=== PATIENT | female | born 1955 | race Caucasian/White ===

== ENCOUNTER 2023-05-19 05:58 | Inpatient (IN) | payer MEDICARE, OTHER ==
[~2023-05-19] VITALS: Ht 152.4 cm; Wt 68.0 kg
[2023-05-19 06:52] VITALS: BP 120/60; TEMP 97.7; O2SAT 98
[2023-05-19] MEDS ORDERED: FENTANYL PF 250MCG/5ML AMPUL ONE (07:24)
[2023-05-19] MEDS ORDERED: ROCURONIUM BROMIDE 50 MG/5 ML ONE ×2 (07:25→07:26)
[2023-05-19] MEDS ORDERED: ANESTHESIA TRAY IN PYXIS 1 EA TRAY MC ONE (07:26)
[2023-05-19] MEDS ORDERED: LIDOCAINE 2%-EPI 1:100,000 30 ML VIAL ONE (07:27)
[2023-05-19] MEDS ORDERED: VANCOMYCIN 1 GM VIAL ONE (07:27)
[2023-05-19] MEDS ORDERED: SEVOFLURANE 250 ML BOTTLE IH ONE (07:44)
[2023-05-19] MEDS ORDERED: OMEP40CA21 PO (08:04)
[2023-05-19] MEDS ORDERED: CLON0.5T4 PO (08:04)
[2023-05-19] MEDS ORDERED: PROP20TA7 PO (08:04)
[2023-05-19] MEDS ORDERED: ALEN70TA3 PO (08:04)
[2023-05-19] MEDS ORDERED: HYDROMORPHONE 1 MG/1 ML DISP.SYRIN IV PRN (10:00)
[2023-05-19] MEDS ORDERED: IV NS 0.9% 1,000 ML IV PRN (10:00)
[2023-05-19] MEDS ORDERED: ONDANSETRON HCL/PF 4 MG/2 ML VIAL IV PRN (10:00)
[2023-05-19] MEDS ORDERED: ACETAMINOPHEN 325 MG TABLET PO PRN (10:00)
[2023-05-19 10:10] VITALS: BP 126/63; TEMP 97.5; O2SAT 99
[2023-05-19 12:00] VITALS: BP 118/54; TEMP 97.8; O2SAT 97
[2023-05-19 15:51] VITALS: BP 108/60; TEMP 98.2; O2SAT 97
[2023-05-19 20:00] VITALS: BP 106/55; TEMP 98.4; O2SAT 96
[2023-05-19] MEDS: VANCOMYCIN 1 GM in IV D5W 250ml IV SCH (20:29)
[2023-05-19] MEDS ORDERED: clonazePAM 0.5 MG TABLET PO SCH (22:00)
[2023-05-20] MEDS ORDERED: FAMOTIDINE (20 MG) 20 MG TABLET PO ONE (04:00)
[2023-05-20] MEDS ORDERED: PANTOPRAZOLE 40 MG TABLET.DR PO SCH (07:30)
[2023-05-20 08:00] VITALS: BP 137/56; TEMP 98.2; O2SAT 96
[2023-05-20] MEDS: VANCOMYCIN 1 GM in IV D5W 250ml IV SCH (08:17)
[2023-05-20 08:47] VITALS: BP 137/56
[2023-05-20] MEDS ORDERED: PROPRANOLOL HCL 10 MG TABLET PO SCH (09:00)
[2023-05-25] MEDS ORDERED: ALENDRONATE 70 MG TABLET PO SCH (09:00)
== END 2023-05-20 14:00 | disposition home or self-care (01) | DRG 141 ==
LOC: DS 05:58 → MED 05:59
PROVIDERS: ADMIT Internal Medicine; ATTEND Internal Medicine
PROC: 0NSR04Z Reposition Maxilla with Internal Fixation Device, Open Approach (ICD-10-PCS; principal; 2023-05-19)
PROC: 0NUR07Z Supplement Maxilla with Autologous Tissue Substitute, Open Approach (ICD-10-PCS; 2023-05-19)
PROC: 09UQ07Z Supplement Right Maxillary Sinus with Autologous Tissue Substitute, Open Approach (ICD-10-PCS; 2023-05-19)
PROC: 0NBV0ZX Excision of Left Mandible, Open Approach, Diagnostic (ICD-10-PCS; 2023-05-19)
PROC: 0NBR0ZX Excision of Maxilla, Open Approach, Diagnostic (ICD-10-PCS; 2023-05-19)
PROC: 0NHV04Z Insertion of Internal Fixation Device into Left Mandible, Open Approach (ICD-10-PCS; 2023-05-19)
DX: S02.40CA Maxillary fracture, right side, initial encounter for closed fracture (principal); M87.88 Other osteonecrosis, other site; M27.2 Inflammatory conditions of jaws; S02.69XA Fracture of mandible of other specified site, initial encounter for closed fracture; I10 Essential (primary) hypertension; F41.9 Anxiety disorder, unspecified; J32.0 Chronic maxillary sinusitis; D16.4 Benign neoplasm of bones of skull and face; M81.0 Age-related osteoporosis without current pathological fracture; X58.XXXA Exposure to other specified factors, initial encounter; Y93.9 Activity, unspecified; Y92.009 Unspecified place in unspecified non-institutional (private) residence as the place of occurrence of the external cause
CPT/HCPCS: 82962-TC; 87081-TC; A4223; C1713; G0378; J0461; J1170; J1885; J2704; J3010; J3370; J3490; J7030; J7060